=== PATIENT | female | born 1940 | race Caucasian/White ===

== ENCOUNTER 2017-03-19 09:58 | Outpatient (RCR) | payer MEDICARE, OTHER ==
[2015-03-13 09:13] VITALS: BMI 26.5
[~2017-03-19 09:58] MED LIST: ACID16CA PO; AMIN1TAB PO; APIX5TAB PO; ARMTHY90PT PO; ASP81 PO; ASPI-757 PO; ATEN-1 PO; ATEN-65 PO; CYAN500T38 PO; CYCL10TA29 PO; DENOSUMAB 60 MG/1 ML SYR SUBQ ONE; FOLI-68 PO; HRT PO; LACT1CAP12; LISI5TAB25 PO; LOR5/325 PO; OSTEOPRIME PO; POTA2.5T7 PO; SULF-198 PO; THYR30TA21 PO; TRAM-420 PO; VITA0.4T11 PO; VITA1CAP46 PO; [UNRECOGNIZED DRUG - CODE] PO; [UNRECOGNIZED DRUG - CODE] PO
[2017-03-19 10:02] VITALS: BP 140/80
== END 2017-04-04 11:11 | disposition home or self-care (01) ==
LOC: SPU 09:58
PROVIDERS: ATTEND Internal Medicine Hematology
DX: M81.0 Age-related osteoporosis without current pathological fracture (principal)
CPT/HCPCS: 96372; J0897

== ENCOUNTER 2017-05-15 13:37 | Emergency (ER) | payer MEDICARE, OTHER ==
[2015-03-13 09:13] VITALS: Wt 77.1 kg
--- NOTE | 2017-05-15 14:29 | ER Report ---
History and Physical Time Seen By MD: 14:29 Hx. of Stated Complaint: PATIENT STATES THAT SHE HAS HAD LEFT LOWER LEG PAIN SINCE FRI. NIGHT; TODAY IT HAS GOTTEN WORSE AND STATES THAT THE PAIN IS OFF AND ON HPI/ROS CHIEF COMPLAINT: Left lower extremity discomfort and swelling HISTORY OF PRESENT ILLNESS: 76-year-old female patient presents to emergency room with complaint of left lower extremity swelling and discomfort. Patient states been going on for the last couple days. Patient states she's not had any shortness of breath, chest pain. Patient states she does have a history of DVT in the past. She states she had a negative ultrasound and then a few days later developed shortness of breath and chest pain and was diagnosed with pulmonary embolism. Patient states that she has not taken any medication for this. She denies having any fevers or chills. She states that the pain seems to be located right around the left knee. Patient was seen and evaluated at [facility], it was found there that she had an elevated d-dimer. She was then referred to the emergency room. REVIEW OF SYSTEMS: Respiratory: No cough, no dyspnea. Cardiovascular: No chest pain, no palpitations. Gastrointestinal: No vomiting, no abdominal pain. Musculoskeletal: As noted above Allergies: Coded Allergies: mold (Verified Allergy, Intermediate, a, 05/15/17) airborne molds Home Meds Active Scripts Atenolol (ATENOLOL) 25 Mg Tablet, 2 TAB PO BID, #240 TAB Prov:ALEXANDRA HERNANDEZ MD 03/12/15 Reported Medications Aspirin (ASPIRIN) 325 Mg Tablet, 325 MG PO DAILY, TAB 12/12/16 Cyanocobalamin (Vitamin B-12) (VITAMIN B-12) 500 Mcg Tablet, 500 MCG PO DAILY 12/12/16 Folic Acid (FOLIC ACID) 1 Mg Tablet, 2 MG PO QDAY, TAB 05/31/16 Lactobacillus Combo No.11 (PROBIOTIC) 1 Each Cap.sprink 05/31/16 Vitamin B Complex/Folic Acid (VITAMIN B-100 COMPLEX TABLET) 0.4 Mg Tablet, 0.4 MG PO 05/31/16 Folic Acid (FOLIC ACID) 1 Mg Tablet, 2 MG PO QDAY, TAB 05/31/16 Lisinopril (LISINOPRIL) 5 Mg Tablet, 5 MG PO QDAY, TAB 05/31/16 Thyroid (ARMOUR THYROID) 90 Mg Tab, 2.5 GR PO DAILY, TAB 03/12/15 Past Medical/Surgical History Patient has a past medical history of DVT, hypertension, PE, arthritis, hypothyroidism, alcohol use. Patient has surgical history of hysterectomy, back surgery, breast biopsy. Reviewed Nurses Notes: Yes Hx Smoking: Yes Smoking Status: Former Smoker Exposure to Second Hand Smoke?: No Hx Substance Use Disorder: No Hx Alcohol Use: Yes Constitutional Vital Sign - Last 24 Hours 05/15/17 05/15/17 05/15/17 05/15/17 13:42 14:15 14:30 14:37 Temp 97.9 Pulse 70 68 Resp 19 B/P (MAP) 162/94 157/90 (112) 158/88 (111) Pulse Ox 94 95 O2 Delivery Room Air 05/15/17 05/15/17 05/15/17 05/15/17 15:00 15:07 15:30 15:30 Pulse 66 67 Resp 6 28 B/P (MAP) 168/81 (110) 163/85 (111) 163/85 (111) Pulse Ox 90 95 05/15/17 05/15/17 05/15/17 05/15/17 16:00 16:30 17:00 17:30 Pulse 68 65 66 Resp 20 12 12 17 B/P (MAP) 176/82 (113) 174/88 (116) 173/84 (113) 178/97 (124) Pulse Ox 93 92 05/15/17 17:52 B/P (MAP) 186/94 (124) Physical Exam General Appearance: The patient is alert, has no immediate need for airway protection and no current signs of toxicity. Respiratory: Chest is non tender, lungs are clear to auscultation. Cardiac: regular rate and rhythm Gastrointestinal: Abdomen is soft and non tender, no masses, bowel sounds normal. Musculoskeletal: Neck: Neck is supple and non tender. Extremities have full range of motion and are non tender. Patient does have some swelling to the left lower extremity, pulses are equal and strong. Has tenderness to the patella. Skin: No rashes or lesions. DIFFERENTIAL DIAGNOSIS: After history and physical exam differential diagnosis was considered for DVT, PE, arthritis, gout. Medical Decision Making Data Points Result Diagram: 05/15/17 1420 05/15/17 1420 Laboratory Hematology Test 05/15/17 14:20 Red Blood Count 4.93 M/uL (4.17-5.56) Mean Corpuscular Volume 91.9 fL (80.0-96.0) Mean Corpuscular Hemoglobin 31.0 pg (26.0-33.0) Mean Corpuscular Hemoglobin Concent 33.8 g/dL (32.0-36.0) Red Cell Distribution Width 13.9 % (11.5-14.5) Mean Platelet Volume 9.5 fL (7.2-11.1) Neutrophils (%) (Auto) 54.5 % (39.4-72.5) Lymphocytes (%) (Auto) 29.7 % (17.6-49.6) Monocytes (%) (Auto) 11.5 % (4.1-12.4) Eosinophils (%) (Auto) 3.6 % (0.4-6.7) Basophils (%) (Auto) 0.7 % (0.3-1.4) Nucleated RBC Relative Count (auto) 0.0 /100WBC Neutrophils # (Auto) 2.4 K/uL (2.0-7.4) Lymphocytes # (Auto) 1.3 K/uL (1.3-3.6) Monocytes # (Auto) 0.5 K/uL (0.3-1.0) Eosinophils # (Auto) 0.2 K/uL (0.0-0.5) Basophils # (Auto) 0.0 K/uL (0.0-0.1) Nucleated RBC Absolute Count (auto) 0.00 K/uL Sodium Level 138 mmol/L (137-145) Potassium Level 3.7 mmol/L (3.5-5.0) Chloride Level 101 mmol/L (98-107) Carbon Dioxide Level 26 mmol/L (22-31) Blood Urea Nitrogen 21 mg/dl (7-18) Creatinine 0.70 mg/dl (0.52-1.04) Glomerular Filtration Rate Calc > 60.0 Random Glucose 89 mg/dl (75-110) Calcium Level 9.2 mg/dl (8.4-10.2) Total Bilirubin 1.0 mg/dl (0.2-1.3) Aspartate Amino Transf (AST/SGOT) 25 U/L (0-35) Alanine Aminotransferase (ALT/SGPT) 34 U/L (0-56) Alkaline Phosphatase 75 U/L (0-126) Troponin I < 0.012 ng/ml Total Protein 7.3 gm/dl (6.3-8.2) Albumin 4.2 g/dl (3.5-5.0) Chemistry Test 05/15/17 14:20 White Blood Count 4.3 k/uL (4.5-11.0) Red Blood Count 4.93 M/uL (4.17-5.56) Hemoglobin 15.3 g/dL (12.0-16.0) Hematocrit 45.3 % (34.0-47.0) Mean Corpuscular Volume 91.9 fL (80.0-96.0) Mean Corpuscular Hemoglobin 31.0 pg (26.0-33.0) Mean Corpuscular Hemoglobin Concent 33.8 g/dL (32.0-36.0) Red Cell Distribution Width 13.9 % (11.5-14.5) Platelet Count 173 K/uL (150-450) Mean Platelet Volume 9.5 fL (7.2-11.1) Neutrophils (%) (Auto) 54.5 % (39.4-72.5) Lymphocytes (%) (Auto) 29.7 % (17.6-49.6) Monocytes (%) (Auto) 11.5 % (4.1-12.4) Eosinophils (%) (Auto) 3.6 % (0.4-6.7) Basophils (%) (Auto) 0.7 % (0.3-1.4) Nucleated RBC Relative Count (auto) 0.0 /100WBC Neutrophils # (Auto) 2.4 K/uL (2.0-7.4) Lymphocytes # (Auto) 1.3 K/uL (1.3-3.6) Monocytes # (Auto) 0.5 K/uL (0.3-1.0) Eosinophils # (Auto) 0.2 K/uL (0.0-0.5) Basophils # (Auto) 0.0 K/uL (0.0-0.1) Nucleated RBC Absolute Count (auto) 0.00 K/uL Glomerular Filtration Rate Calc > 60.0 Calcium Level 9.2 mg/dl (8.4-10.2) Total Bilirubin 1.0 mg/dl (0.2-1.3) Aspartate Amino Transf (AST/SGOT) 25 U/L (0-35) Alanine Aminotransferase (ALT/SGPT) 34 U/L (0-56) Alkaline Phosphatase 75 U/L (0-126) Troponin I < 0.012 ng/ml Total Protein 7.3 gm/dl (6.3-8.2) Albumin 4.2 g/dl (3.5-5.0) EKG/Imaging EKG Interpretation 12 lead EKG: Rhythm: normal sinus rhythm with a ventricular rate of 64 bpm [place]mita: normal QRS: normal ST segments: normal Imaging EXAMINATION: Left knee radiographs 4 views HISTORY: Left knee pain and tingling. COMPARISON: None. FINDINGS: AP, lateral, sunrise, and oblique views of the left knee are obtained. Bones: No acute fracture. Quadriceps insertion enthesophyte on the patella. Joint spaces: Negative. Hardware: None. Alignment: Normal. Soft tissues: Negative. Effusion: None. IMPRESSION: No acute osseous abnormality of the left knee. Report Dictated By: Paop Dowd MD at 05/15/2017 6:10 PM Report E-Signed By: Papo Dowd MD at 05/15/2017 6:[address] angiogram chest with contrast Indication: Elevated d-dimer. Chest pain. History of pulmonary embolism. Comparison: 08/17/2015. Technique: Axial CT images are obtained through the chest after administration of 75 mL Isovue 370 IV contrast. Reformatted coronal and sagittal images were reviewed as well as coronal MIP images. One of the following dose optimization techniques was utilized in the performance of this exam: automated exposure control; adjustment of the mA and/ or kV according to the patient's size; or use of an iterative reconstruction technique. Specific details can be referenced in the facility's radiology CT exam operational policy. FINDINGS: No evidence of filling defect within the pulmonary vasculature to suggest pulmonary embolus. Heart is normal size without pericardial effusion. Aorta shows no indication of aneurysm or dissection. The mediastinum and hilar regions show no enlarged lymph nodes or abnormal density. Lungs show no consolidation, pleural effusion, pneumothorax, discrete nodule or focal interstitial opacity. Airways are clear. Bony structures show no acute fracture or discrete lesions. Chest wall shows no enlarged axillary lymph nodes or masses. Small hiatal hernia. The upper abdomen is otherwise unremarkable. IMPRESSION: 1. No evidence of pulmonary embolus. 2. No acute cardiothoracic abnormality Report Dictated By: Sarabjit Schmid at 05/15/2017 4:39 PM Report E-Signed By: Sarabjit Schmid at 05/15/2017 4:48 PM EXAMINATION: Unilateral lower extremity deep vein duplex Doppler ultrasound HISTORY: Left leg swelling and pain. COMPARISON: None. FINDINGS: Grayscale compression, duplex and color Doppler interrogation of the left lower extremity deep veins from common femoral vein to proximal calf was performed. The greater saphenous vein in the ipsilateral proximal thigh was evaluated using similar technique. Left lower extremity: Common femoral vein: Negative. Femoral vein: Negative. Deep femoral vein: Negative. Popliteal vein: Negative. Visualized deep calf veins: Negative. Greater saphenous vein in the proximal thigh: Negative. Popliteal fossa: Negative. Waveforms: Normal respiratory phasicity. IMPRESSION: No evidence of deep venous thrombosis of the left lower extremity. Report Dictated By: Papo Dowd MD at 05/15/2017 4:18 PM Report E-Signed By: Papo Dowd MD at 05/15/2017 4:21 PM ED Course/Re-evaluation ED Course Patient was admitted to exam room, history and physical were obtained. Differential diagnoses were considered. On examination patient does have some swelling to the left lower extremity, it is mildly erythematous. A CBC, CMP, troponin, EKG, ultrasound of the left lower extremity, CT pelvis angiogram were done. Troponin was negative, EKG showed a normal sinus rhythm, CBC and CMP were unremarkable. Ultrasound was negative for clots. CT scan showed no pulmonary emboli. I discussed findings with the patient. With patient having pain to the left patella an x-ray of the left knee was done. The results were negative. I discussed the patient and her . We will go ahead and discharge patient home at this time. I would like him to follow-up with her primary care provider early next week. I like to be reevaluated that time and if needed an ultrasound repeated. I discussed this with the patient and her and they verbalized understanding and agreement with plan. Decision to Disposition Date: May 15, 2017 Decision to Disposition Time: 17:47 Depart Departure Latest Vital Signs Vital Signs Date Time Temp Pulse Resp B/P (MAP) Pulse Ox O2 Delivery O2 Flow Rate FiO2 05/15/17 17:52 186/94 (124) 05/15/17 17:30 66 17 92 05/15/17 13:42 97.9 Room Air Impression: Primary Impression: Knee pain Condition: Improved Disposition: HOME OR SELF-CARE Referrals: BALBIR WOODRUFF DO (PCP) Patient Instructions: Knee Pain (ED) Additional Instructions: Limit activity by pain. Ice the knee 2-3 times a day for 10-15 minutes. Get plenty of rest. Follow up with your primary care provider in the next week. Return to the ER if condition worsens. Take Tylenol or Ibuprofen as needed for pain. Problem Qualifiers Primary Impression: Knee pain Chronicity: acute Laterality: left Qualified Codes: M25.562 - Pain in left knee CHILO PALUMBO May 15, 2017 14:29
[2017-05-15 14:47] LABS: PLATELET COUNT, AUTOMATED 173 K/uL (150-450)
--- NOTE | 2017-05-15 15:11 | EKG ---
[place] [facility] [place] NAME[place] BRIAN MONTALVO : [id number] MR: [id number] V: [id number] EXAM DATE: ORDERING PHYSICIAN: CHILO PALUMBO TECHNOLOGIST: LETA Magaña Reason : HX OF PE Blood Pressure : / mmHG Vent. Rate : 064 BPM Atrial Rate : 064 BPM P-R Int : 170 ms QRS Dur : 090 ms QT Int : 424 ms P-R-T Axes : 054 016 026 degrees QTc Int : 437 ms Normal sinus rhythm Normal ECG No previous ECGs available Confirmed by ROMULO DENISE ([id number]) on 05/15/2017 5:44:43 PM Referred By: CHILO Confirmed By:ROMULO DENISE
[2017-05-15] MEDS ORDERED: NS 0.9% 150 ML BAG 150 ML ONE (15:33)
[2017-05-15] MEDS ORDERED: IOPAMIDOL 76% 75 ML INFUS BTL 75 ML ONE (15:33)
[2017-05-15] MEDS ORDERED: NS 0.9% 20 ML SDV 60 ML ONE (16:09)
--- NOTE | 2017-05-15 16:24 | RADIOLOGY IMAGING REPORT ---
FACILITY: [facility] PATIENT NAME: Melinda Oshea : 1940 MR: [id number] V: [id number] EXAM DATE: ORDERING PHYSICIAN: CHILO PALUMBO TECHNOLOGIST: Location: [facility] Patient: Melinda Oshea : 1940 Visit/Account:[id number] Date of Sevice: 05/15/2017 EXAMINATION: Unilateral lower extremity deep vein duplex Doppler ultrasound HISTORY: Left leg swelling and pain. COMPARISON: None. FINDINGS: Grayscale compression, duplex and color Doppler interrogation of the left lower extremity deep veins from common femoral vein to proximal calf was performed. The greater saphenous vein in the ipsilatera l proximal thigh was evaluated using similar technique. Left lower extremity: Common femoral vein: Negative. Femoral vein: Negative. Deep femoral vein: Negative. Popliteal vein: Negative. Visualized deep calf veins: Negative. Greater saphenous vein in the proximal thigh: Negative. Popliteal fossa: Negative. Waveforms: Normal respiratory phasicity. IMPRESSION: No evidence of deep venous thrombosis of the left lower extremity. Report Dictated By: Papo Dowd MD at 05/15/2017 4:18 PM Report E-Signed By: Papo Dowd MD at 05/15/2017 4:21 PM WSN:[id number]
--- NOTE | 2017-05-15 16:52 | RADIOLOGY IMAGING REPORT ---
FACILITY: [facility] [place] PATIENT NAME: Melinda Oshea : 1940 MR: [id number] V: [id number] EXAM DATE: ORDERING PHYSICIAN: CHILO PALUMBO TECHNOLOGIST: Location: [facility] [place] Patient: Melinda Oshea : 1940 Visit/Account:[id number] Date of Sevice: 05/15/2017 CT angiogram chest with contrast Indication: Elevated d-dimer. Chest pain. History of pulmonary embolism. Comparison: 08/17/2015. Technique: Axial CT images are obtained through the chest after administration of 75 mL Isovue 370 IV contrast. Reformatted coronal and sagittal images were reviewed as well as coronal MIP images. One of the following dose optimization techniques was utilized in the performance of this exam: auto mated exposure control; adjustment of the mA and/or kV according to the patient's size; or use of an iterative reconstruction technique. Specific details can be referenced in the facility's radiology C T exam operational policy. FINDINGS: No evidence of filling defect within the pulmonary vasculature to suggest pulmonary embolus. Heart is normal size without pericardial effusion. Aorta shows no indication of aneurysm or dissectio n. The mediastinum and hilar regions show no enlarged lymph nodes or abnormal density. Lungs show no consolidation, pleural effusion, pneumothorax, discrete nodule or focal interstitial op acity. Airways are clear. Bony structures show no acute fracture or discrete lesions. Chest wall shows no enlarged axillary lym ph nodes or masses. Small hiatal hernia. The upper abdomen is otherwise unremarkable. IMPRESSION: 1. No evidence of pulmonary embolus. 2. No acute cardiothoracic abnormality Report Dictated By: Sarabjit Schmid at 05/15/2017 4:39 PM Report E-Signed By: Sarabjit Schmid at 05/15/2017 4:48 PM WSN:[id number]
[2017-05-15 17:52] VITALS: BP 186/94
--- NOTE | 2017-05-15 18:16 | RADIOLOGY IMAGING REPORT ---
FACILITY: [facility] - [place] PATIENT NAME: Melinda Oshea : 1940 MR: [id number] V: [id number] EXAM DATE: ORDERING PHYSICIAN: CHILO PALUMBO TECHNOLOGIST: Location: [facility] [place] Patient: Melinda Oshea : 1940 Visit/Account:[id number] Date of Sevice: 05/15/2017 EXAMINATION: Left knee radiographs 4 views HISTORY: Left knee pain and tingling. COMPARISON: None. FINDINGS: AP, lateral, sunrise, and oblique views of the left knee are obtained. Bones: No acute fracture. Quadriceps insertion enthesophyte on the patella. Joint spaces: Negative. Hardware: None. Alignment: Normal. Soft tissues: Negative. Effusion: None. IMPRESSION: No acute osseous abnormality of the left knee. Report Dictated By: Papo Dowd MD at 05/15/2017 6:10 PM Report E-Signed By: Papo Dowd MD at 05/15/2017 6:13 PM WSN:[id number]
== END 2017-05-15 18:06 | disposition home or self-care (01) ==
LOC: ER 14:32
DX: M25.562 Pain in left knee (principal)
CPT/HCPCS: 71275; 73564; 84484; 85025; 93005; 93971; 99284; J7050; Q9967; 82040; 82247; 82310; 82374; 82435; 82565; 82947; 84075; 84132; 84155; 84295; 84450; 84460; 84520

== ENCOUNTER → 2017-05-15 | Outpatient (REF) | payer MEDICARE, OTHER ==
[2015-03-13 09:13] VITALS: BMI 26.5
[~2017-05-15] MED LIST changes: -DENOSUMAB 60 MG/1 ML SYR SUBQ ONE
== END ==
LOC: ZZSENDIN 12:14
PROVIDERS: ATTEND Physician Assistant
DX: M79.605 Pain in left leg (principal)
CPT/HCPCS: 85379

== ENCOUNTER → 2017-05-20 | Outpatient (CLI) | payer MEDICARE, OTHER ==
[2015-03-13 09:13] VITALS: BMI 26.5
--- NOTE | 2017-05-20 13:06 | RADIOLOGY IMAGING REPORT ---
FACILITY: [facility] - [place] PATIENT NAME: Melinda Oshea : 1940 MR: [id number] V: [id number] EXAM DATE: ORDERING PHYSICIAN: BALBIR WOODRUFF TECHNOLOGIST: Location: [facility] [place] Patient: Melinda Oshea : 1940 Visit/Account:[id number] Date of Sevice: 05/20/2017 Exam type: 7 views lumbosacral spine History: Low back pain, radiculopathy, prior surgery Comparison: 02/01/2016. Findings: Postoperative changes are noted from fusion of L1-L4 through the left pedicles with intervertebral mary dy disks. No hardware complication seen. Mild compression deformity of the superior endplate of L4 is once again noted. Patient is osteopenic. AP view demonstrates a mild scoliosis towards the left. Lateral syndesmophytes are noted. Flexion-extension views demonstrate 4 mm of fixed retrolisthesis of T12 with respect to L1 but no sig nificant motion. IMPRESSION: 1. Postoperative changes are noted from posterior lumbar interbody fusion L1-L4 with left pedicle sc rews without hardware complication. 2. 4 mm of fixed retrolisthesis of T12 with respect to L1. No significant motion on flexion-extensi on views. 3. Mild lumbar scoliosis with degenerative changes. Report Dictated By: Sarabjit Cardona MD at 05/20/2017 12:58 PM Report E-Signed By: Sarabjit Cardona MD at 05/20/2017 1:01 PM WSN:[email or web address]
== END ==
LOC: RAD 11:12
PROVIDERS: ATTEND Family Medicine
DX: M85.88 Other specified disorders of bone density and structure, other site (principal); M41.87 Other forms of scoliosis, lumbosacral region; Z96.89 Presence of other specified functional implants; Z96.7 Presence of other bone and tendon implants
CPT/HCPCS: 72114

== ENCOUNTER → 2017-06-02 | Outpatient (CLI) | payer MEDICARE, OTHER ==
[2015-03-13 09:13] VITALS: BMI 26.5
--- NOTE | 2017-06-02 11:22 | RADIOLOGY IMAGING REPORT ---
[place] [facility] [place] NAME: Melinda Oshea : 1940 MR: [id number] V: [id number] EXAM DATE: ORDERING PHYSICIAN: KIKO CHOE TECHNOLOGIST: Location: [facility] Patient: Melinda Oshea : 1940 Visit/Account:[id number] Date of Sevice: 06/02/2017 L SPINE W/O CONTRAST History: Low back pain for 2 weeks. Numbness and tingling down left leg. COMPARISON STUDIES: 02/03/2015 TECHNIQUE: Multi-planar, multi-sequence lumbar spine MRI was performed without intravenous contrast administration. FINDINGS: Paraspinal soft tissues negative. Interval posterior fusion from L1 through L4 with stable grade 1 anterolisthesis L3 on L4. Desiccation of the remaining intervertebral discs. Moderate loss of disc space height T12-L1 and L5-S1. Visualized thoracic cord and conus appear normal. Mild prog ression of diffuse disc bulge at T12-L1 seen on the sagittal views. L1-L2: Interval partial discectomy with improved patency of the central canal. Small residual tiny c entral disc extrusion without significant central stenosis. Moderate left foraminal stenosis not sig nificantly changed. L2-L3: Broad-based disc bulge and facet hypertrophy result in mild to moderate narrowing of the centr al canal. Moderate bilateral foraminal stenosis not significantly changed. L3-L4: Facet hypertrophic changes. Mild narrowing of the central canal. Moderate bilateral foramina l stenosis not significantly changed. L4-L5: Broad-based disc bulge and facet hypertrophy. Interval development of left-sided synovial cys t which narrows the lateral recess for the L5 nerve root. Progression of mild narrowing of the centr al canal. Moderate bilateral foraminal stenosis not significantly changed. L5-S1: Broad-based disc bulge and facet hypertrophy. Interval development of left lateral filling de fect measuring 1.2 cm probably a synovial cyst which narrows the lateral recess for the S1 nerve root IMPRESSION: 1. New synovial cyst laterally on the left at L4-5 which narrows the lateral recess for the L5 nerve root. 2. New 1.2 cm filling defect laterally on the left at L5-S1 probably a synovial cyst or less likely extruded disc fragment narrowing the lateral recess for the S1 nerve root. 3. Interval posterior fusion from L1 to L3 with improved patency of the central canal at L1-L2. 4. Progression of mild degenerative disc disease at T12-L1. Report Dictated By: Joaquin Estrada MD at 06/02/2017 10:51 AM Report E-Signed By: Joaquin Estrada MD at 06/02/2017 11:16 AM WSN:[id number]
== END ==
LOC: MRI 05-30 07:03
PROVIDERS: ATTEND Orthopaedic Surgery Orthopaedic Surgery of the Spine
DX: M71.38 Other bursal cyst, other site (principal); M19.90 Unspecified osteoarthritis, unspecified site
CPT/HCPCS: 72148

== ENCOUNTER → 2017-12-09 | Outpatient (CLI) | payer MEDICARE, OTHER ==
[2015-03-13 09:13] VITALS: BMI 26.5
[~2017-12-09] MED LIST changes: +DENOSUMAB 60 MG/1 ML SYR SUBQ ONE
[2017-12-09 14:04] VITALS: BP 122/78
== END ==
LOC: SPU 09:39
PROVIDERS: ATTEND Family Medicine
DX: M81.0 Age-related osteoporosis without current pathological fracture (principal)
CPT/HCPCS: 96372; J0897

== ENCOUNTER 2017-12-22 17:16 | Emergency (ER) | payer MEDICARE, OTHER ==
[2015-03-13 09:13] VITALS: Wt 73.9 kg
[~2017-12-22 17:16] MED LIST changes: -DENOSUMAB 60 MG/1 ML SYR SUBQ ONE
--- NOTE | 2017-12-22 17:31 | ER Report ---
History and Physical Time Seen By MD: 17:27 Hx. of Stated Complaint: PATIENT IS HAVING DIFFICULTY SPEAKING AND RELAYING HER THOUGHTS HPI/ROS CHIEF COMPLAINT: Difficulty speaking HISTORY OF PRESENT ILLNESS: This is a 77-year-old female who presents to the emergency Department by private vehicle with her for discopathy approximately 30 minutes to 60 minutes prior to arrival the patient states she was talking to her son, who is a physician, he is asking her about her blood pressure, patient had difficulties finding the words blood pressure she could describe everything else that she was doing had no difficulties finding other words. The son asked her again and had a difficult time again finding the appropriate words for blood pressure. The son told him to go to the emergency department immediately. The patient arrives alert and oriented, interacting well, no distress, ambulates back to the room. The patient recalls the event, no amnesia, denies headaches, visual disturbances, no chest pain or shortness of breath, no palpitations. The patient is able to tell me in detail what happened however she is still having difficulty finding the words blood pressure. She is alert to date, time, location. No recent fevers or chills. REVIEW OF SYSTEMS: Constitutional: No fever, no chills. Eyes: No discharge. ENT: No sore throat. Cardiovascular: No chest pain, no palpitations. Respiratory: No cough, no shortness of breath. Gastrointestinal: No abdominal pain, no vomiting. Genitourinary: No hematuria. Musculoskeletal: No back pain. Skin: No rashes. Neurological: As above. Allergies: Coded Allergies: mold (Verified Allergy, Intermediate, a, 05/15/17) airborne molds Home Meds Active Scripts Atenolol (ATENOLOL) 25 Mg Tablet, 2 TAB PO BID, #240 TAB Prov:ALEXANDRA HERNANDEZ MD 03/12/15 Reported Medications Apixaban (ELIQUIS) 2.5 Mg Tablet, 2.5 MG PO BID 12/22/17 Folic Acid (FOLIC ACID) 1 Mg Tablet, 2 MG PO QDAY, TAB 05/31/16 Lisinopril (LISINOPRIL) 5 Mg Tablet, 5 MG PO QDAY, TAB 05/31/16 Thyroid (ARMOUR THYROID) 90 Mg Tab, 2 GR PO DAILY, TAB 03/12/15 Discontinued Reported Medications Aspirin (ASPIRIN) 325 Mg Tablet, 325 MG PO DAILY, TAB 12/12/16 Cyanocobalamin (Vitamin B-12) (VITAMIN B-12) 500 Mcg Tablet, 500 MCG PO DAILY 12/12/16 Folic Acid (FOLIC ACID) 1 Mg Tablet, 2 MG PO QDAY, TAB 05/31/16 Lactobacillus Combo No.11 (PROBIOTIC) 1 Each Cap.sprink 05/31/16 Vitamin B Complex/Folic Acid (VITAMIN B-100 COMPLEX TABLET) 0.4 Mg Tablet, 0.4 MG PO 05/31/16 Past Medical/Surgical History The patient has a past medical and surgical history of hypothyroidism, cataracts, wears glasses, hypertension, DVT, PE, hysterectomy, arthritis, back surgery, history of smoking, breast biopsy. Reviewed Nurses Notes: Yes Hx Smoking: Yes Smoking Status: Former Smoker Exposure to Second Hand Smoke?: No Hx Substance Use Disorder: No Hx Alcohol Use: Yes Constitutional Vital Sign - Last 24 Hours 12/22/17 12/22/17 12/22/17 12/22/17 17:20 17:35 17:45 17:46 Temp 97.4 Pulse 75 76 Resp 20 13 B/P (MAP) 151/20 172/88 (116) 166/84 (111) Pulse Ox 92 12/22/17 12/22/17 12/22/17 12/22/17 18:00 18:01 18:15 18:16 Pulse 71 75 Resp 10 15 B/P (MAP) 161/85 (110) 169/96 (120) Pulse Ox 93 12/22/17 12/22/17 12/22/17 12/22/17 18:30 18:31 18:45 18:46 Pulse 65 68 Resp 17 10 B/P (MAP) 162/87 (112) 155/84 (107) 12/22/17 12/22/17 12/22/17 12/22/17 19:13 19:15 19:20 19:30 Pulse 68 Resp 15 B/P (MAP) 155/84 (107) 156/83 (107) 155/93 (113) Pulse Ox 95 12/22/17 12/22/17 12/22/17 12/22/17 19:35 19:45 19:50 20:00 Pulse 74 70 Resp 14 10 B/P (MAP) 163/92 (115) 162/89 (113) Pulse Ox 94 95 12/22/17 12/22/17 12/22/17 12/22/17 20:20 20:30 20:32 20:37 Pulse 68 68 Resp 17 19 B/P (MAP) 144/106 (119) 158/94 (115) Pulse Ox 97 95 Physical Exam General Appearance: The patient is alert, has no immediate need for airway protection and no signs of toxicity. Eyes: Pupils equal and round no pallor or injection. EOMs intact. No nystagmus. ENT, Mouth: Mucous membranes are moist. Respiratory: There are no retractions, lungs are clear to auscultation. Cardiovascular: Regular rate and rhythm, no murmurs, clicks or rubs. Gastrointestinal: Abdomen is soft and non tender, no masses, bowel sounds normal. Neurological: Alert and oriented 4. Moving all extremities. Following all commands. No focal neuro deficits. Note the NIH stroke scale below. Skin: Warm and dry, no rashes. Musculoskeletal: Neck is supple non tender. Extremities are nontender, nonswollen and have full range of motion. DIFFERENTIAL DIAGNOSIS: After history and physical exam differential diagnosis was considered for transient ischemic attack, CVA, myocardial infarction, seizure, hypoglycemia and tumor. NIH Stroke Scale: 0 Level of consciousness:0 Alert Answers both questions correctly Performs both tasks correctly Best Gaze:0 Normal Visual:0 No visual loss Facial Palsy:0 Normal, symmetrical movements Motor Left Arm:0 No drift for 10 seconds Motor Right Arm:0 No drift for 10 seconds Motor Left Le No drift for 5 seconds Motor Right Le No drift for 5 seconds Limb Ataxia:0 Absent Sensory: 0 Normal, no sensory loss Best Language: 0 Normal, no aphasia Dysarthria:0 Normal Extinction and Inattention:0 No abnormality Medical Decision Making Data Points Result Diagram: 12/22/17 1727 12/22/17 1727 Laboratory Hematology Test 12/22/17 17:27 Red Blood Count 4.93 M/uL (4.17-5.56) Mean Corpuscular Volume 90.3 fL (80.0-96.0) Mean Corpuscular Hemoglobin 30.6 pg (26.0-33.0) Mean Corpuscular Hemoglobin Concent 33.9 g/dL (32.0-36.0) Red Cell Distribution Width 16.1 % (11.5-14.5) Mean Platelet Volume 9.4 fL (7.2-11.1) Neutrophils (%) (Auto) 55.2 % (39.4-72.5) Lymphocytes (%) (Auto) 32.2 % (17.6-49.6) Monocytes (%) (Auto) 10.6 % (4.1-12.4) Eosinophils (%) (Auto) 1.0 % (0.4-6.7) Basophils (%) (Auto) 1.0 % (0.3-1.4) Nucleated RBC Relative Count (auto) 0.1 /100WBC Neutrophils # (Auto) 3.6 K/uL (2.0-7.4) Lymphocytes # (Auto) 2.1 K/uL (1.3-3.6) Monocytes # (Auto) 0.7 K/uL (0.3-1.0) Eosinophils # (Auto) 0.1 K/uL (0.0-0.5) Basophils # (Auto) 0.1 K/uL (0.0-0.1) Nucleated RBC Absolute Count (auto) 0.01 K/uL Prothrombin Time 13.0 seconds (12.0-14.4) Prothromb Time International Ratio 0.98 Activated Partial Thromboplast Time 29 seconds (23-35) Sodium Level 139 mmol/L (137-145) Potassium Level 3.5 mmol/L (3.5-5.0) Chloride Level 101 mmol/L (98-107) Carbon Dioxide Level 29 mmol/L (22-31) Blood Urea Nitrogen 21 mg/dl (7-18) Creatinine 0.90 mg/dl (0.52-1.04) Glomerular Filtration Rate Calc > 60.0 Random Glucose 100 mg/dl (75-110) Calcium Level 9.4 mg/dl (8.4-10.2) Total Bilirubin 1.5 mg/dl (0.2-1.3) Aspartate Amino Transf (AST/SGOT) 23 U/L (0-35) Alanine Aminotransferase (ALT/SGPT) 25 U/L (0-56) Alkaline Phosphatase 59 U/L (0-126) Troponin I < 0.012 ng/ml Total Protein 7.6 g/dl (6.3-8.2) Albumin 4.4 g/dl (3.5-5.0) Chemistry Test 12/22/17 17:27 White Blood Count 6.5 k/uL (4.5-11.0) Red Blood Count 4.93 M/uL (4.17-5.56) Hemoglobin 15.1 g/dL (12.0-16.0) Hematocrit 44.6 % (34.0-47.0) Mean Corpuscular Volume 90.3 fL (80.0-96.0) Mean Corpuscular Hemoglobin 30.6 pg (26.0-33.0) Mean Corpuscular Hemoglobin Concent 33.9 g/dL (32.0-36.0) Red Cell Distribution Width 16.1 % (11.5-14.5) Platelet Count 204 K/uL (150-450) Mean Platelet Volume 9.4 fL (7.2-11.1) Neutrophils (%) (Auto) 55.2 % (39.4-72.5) Lymphocytes (%) (Auto) 32.2 % (17.6-49.6) Monocytes (%) (Auto) 10.6 % (4.1-12.4) Eosinophils (%) (Auto) 1.0 % (0.4-6.7) Basophils (%) (Auto) 1.0 % (0.3-1.4) Nucleated RBC Relative Count (auto) 0.1 /100WBC Neutrophils # (Auto) 3.6 K/uL (2.0-7.4) Lymphocytes # (Auto) 2.1 K/uL (1.3-3.6) Monocytes # (Auto) 0.7 K/uL (0.3-1.0) Eosinophils # (Auto) 0.1 K/uL (0.0-0.5) Basophils # (Auto) 0.1 K/uL (0.0-0.1) Nucleated RBC Absolute Count (auto) 0.01 K/uL Prothrombin Time 13.0 seconds (12.0-14.4) Prothromb Time International Ratio 0.98 Activated Partial Thromboplast Time 29 seconds (23-35) Glomerular Filtration Rate Calc > 60.0 Calcium Level 9.4 mg/dl (8.4-10.2) Total Bilirubin 1.5 mg/dl (0.2-1.3) Aspartate Amino Transf (AST/SGOT) 23 U/L (0-35) Alanine Aminotransferase (ALT/SGPT) 25 U/L (0-56) Alkaline Phosphatase 59 U/L (0-126) Troponin I < 0.012 ng/ml Total Protein 7.6 g/dl (6.3-8.2) Albumin 4.4 g/dl (3.5-5.0) Coagulation Test 12/22/17 17:27 Prothrombin Time 13.0 seconds Prothromb Time International Ratio 0.98 Activated Partial Thromboplast Time 29 seconds EKG/Imaging EKG Interpretation 12 lead EKG: Time of EKG 1737. Rhythm: Normal sinus rhythm, ventricular rate 68 bpm. Point: normal QRS: normal ST segments: No ST depression or elevation identified. No significant changes from the 05/15/2017 EKG. Imaging Location: [facility] [place] Patient: Melinda Oshea : 1940 Visit/Account:[id number] Date of Sevice: 12/22/2017 HEAD W/O CONTRAST HISTORY: Mental status change, a facial COMPARISON STUDIES: none TECHNIQUE: Contiguous axial images were obtained from the skull base to the vertex. One of the following dose optimization techniques was utilized in the performance of this exam: Automated exposure control; adjustment of the mA and/or kV according to the patient's size; or use of an iterative reconstruction technique. Specific details can be referenced in the facility's radiology CT exam operational policy. FINDINGS: Hemorrhage: Negative Ventricles / sulci / fissures: Negative Masses / midline shift: Negative White matter: Periventricular white matter low density is likely on the basis of small vessel disease. Eddy-white differentiation: Old left external capsular lacunar infarct is noted. Extra-axial spaces: Negative Bones and skull base: Negative Visualized mastoid air cells / paranasal sinuses: Fluid in the sphenoid air cells suggests sinusitis. IMPRESSION: 1. No evidence for acute intracranial hemorrhage, mass or acute ischemia. 2. Old lacunar infarct in the left external capsule. 3. Periventricular white matter low densities likely on the basis of small vessel disease. 4. Sinusitis of the sphenoid air cells. Report Dictated By: Sarabjit Cardona MD at 12/22/2017 5:43 PM Report E-Signed By: Sarabjit Cardona MD at 12/22/2017 5:47 PM WSN:[id number] Exam type: CT ANGIOGRAM HEAD WITH CONTRAST HISTORY: Difficulty with speech TECHNIQUE: Overlapping thin sections were obtained a bolus of IV contrast from the aortic arch through the vertex. Reconstruction of the source data set includes mulitplanar 2D in the sagittal and coronal planes, and 3D coronal thin slab MIP series. One of the following dose optimization techniques was utilized in the performance of this exam: Automated exposure control; adjustment of the mA and/or kV according to the patient's size; or use of an iterative reconstruction technique. Specific details can be referenced in the facility's radiology CT exam operational policy. Stenosis of the internal carotid arteries are calculated using NASCET criteria. Contrast: 75 cc of Isovue-370 COMPARISON STUDIES: None FINDINGS: Angiographic findings: Stenosis will be measured by NASCET criteria. Aortic arch and great vessels: Negative Right CCA / ICA: Negative Left CCA / ICA: Negative Vertebro-basilar: The distal left vertebral artery is patent but diminutive in size. Right vertebral artery is patent to the basilar artery [place]: Origin of the right NOODLE MAKER is from the right internal carotid artery. Other vascular findings: The JOSE, ACOMM, and MCA arteries are unremarkable. Posterior cerebral arteries aside from the persistent right circulation are also unremarkable Dural venous sinuses: Negative Additional non-angiographic findings: Soft tissues of the neck demonstrated absent right thyroid gland. Lung apices are unremarkable. The osseous structures demonstrate degenerative changes in the spine. Air-fluid levels in the sphenoid air cells suggests sinusitis. IMPRESSION: 1. Unremarkable CTA of the neck and brain. 2. Sinusitis of the sphenoid sinuses. Report Dictated By: Sarabjit Cardona MD at 12/22/2017 7:56 PM Report E-Signed By: Sarabjit Cardona MD at 12/22/2017 7:57 PM WSN:[id number] Location: [facility] [place] Patient: Melinda Oshea : 1940 Visit/Account:[id number] Date of Sevice: 12/22/2017 VENOUS DOPP LOW LEFT EXTREMITY HISTORY: Left lower leg pain COMPARISON: 05/15/2017 FINDINGS: Grayscale, duplex and color Doppler interrogation of the left lower extremity deep veins from common femoral vein to proximal calf was completed. The greater saphenous vein in the left proximal thigh was evaluated using similar technique. Common femoral vein - Negative. Femoral vein - Negative. Deep femoral vein - Negative. Popliteal vein - Negative. Visualized deep calf veins - Negative. Popliteal fossa: Negative. Greater saphenous vein in the proximal thigh: Negative. IMPRESSION: 1. No evidence for left lower extremity DVT. Report Dictated By: Sarabjit Cardona MD at 12/22/2017 7:57 PM Report E-Signed By: Sarabjit Cardona MD at 12/22/2017 7:58 PM WSN:[id number] Location: [facility] [place] Patient: Melinda Oshea : 1940 Visit/Account:[id number] Date of Sevice: 12/22/2017 Exam type: CHEST SINGLE AP History: Stroke symptoms Comparison: None. Findings: Both lungs are well-expanded. Chronic interstitial changes are noted but there is no focal infiltrate, pleural effusion or pneumothorax. Heart is enlarged. Thoracic aorta is ectatic. The osseous structures demonstrate healed left posterior lateral rib fractures. Prior surgery in the upper lumbar spine is noted. IMPRESSION: 1. No acute cardiopulmonary disease. Report Dictated By: Sarabjit Cardona MD at 12/22/2017 7:27 PM Report E-Signed By: Sarabjit Cardona MD at 12/22/2017 7:28 PM WSN:[id number] ED Course/Re-evaluation Clinical Indication for ER IV: IV Access ED Course The patient was admitted to room. History and physical were obtained. Differen tial diagnoses were considered. An IV was started. A CBC, CMP, troponin obtained. Laboratory studies unremarkable. Negative troponin. EKG showing normal sinus rhythm. Single view chest x-ray negative for any acute cardiopulmonary process. CT of the brain was negative for any acute intracranial hemorrhage, does appear to have old lacunar infarct in the left external capsule. A CTA of the brain and carotids were negative for any acute abnormalities. I reviewed the laboratory studies as well as the CT results with the patient and her , with the recommendation of the neurologist as noted below and his assessment, I do agree that we can send the patient home with strict follow-up tomorrow with her primary care provider. The patient is on Ahlquist no need for further anticoagulation. The patient states she will follow-up 1st thing tomorrow morning with Dr. Woodruff and move forward with the recommendations as noted on her discharge paperwork such as echocardiogram with bubble study, MRI, hemoglobin A1c, and consideration of 3-4 week cardiac monitoring. The patient and her both agree with this plan of care, the patient is interacting well, no deficits, clear speech, no expressive aphasia at the time of discharge. A also told patient that if this were to happen again she must call an ambulance as opposed to having her drive her in, both she and her expressed understanding. Patient was discharged home. 12/22/2017 6:34:57 pm did speak with Dr. Dowd, neurologist at [facility], through the telemetry stroke program, he did evaluate the patient at the bedside with the to stroke monitor, he did evaluate the patient as I did. He felt the patient would be to go home tonight, he felt that this was a TIA and her ABCD sq score is a 3. She would need to follow up with her primary care provider tomorrow, the patient is agreeable with this plan of care. During our [facility] conversation, the patient did mention that she has had calf pain intermittently over the last week or 2 weeks, she does have a history of clots although she is on Ahlquist at this time. We felt that the risk for a clot was low however we will go ahead and ultrasounded her left leg and CTA of the carotids. 12/22/2017 8:24:36 pm the radiologist called, the patient had negative CTA of the carotids and brain, negative ultrasound of the left lower leg. Decision to Disposition Date: Dec 22, 2017 Decision to Disposition Time: 20:24 Depart Departure Latest Vital Signs Vital Signs Date Time Temp Pulse Resp B/P (MAP) Pulse Ox O2 Delivery O2 Flow Rate FiO2 12/22/17 20:37 68 19 95 12/22/17 20:32 158/94 (115) 12/22/17 17:20 97.4 Impression: Primary Impression: TIA (transient ischemic attack) Condition: Improved Disposition: HOME OR SELF-CARE Referrals: BALBIR WOODRUFF DO (PCP) 1 Day Patient Instructions: Transient Ischemic Attack (DC) Additional Instructions: Your blood work looks good today. The CT of the brain and carotids are both negative. The Ultrasound of the left leg is negative for DVT. You must follow up with your primary care provider tomorrow for follow up, please call first thing in the morning. It is the recommendation of Neurology and myself you must complete the TIA workup with an MRI, Echocardiogram with bubble study, HgbA1C, fasting lipid profile and possibly prolonged cardiac monitoring (3wks or greater). Be sure to take your regular medications. Drink plenty of water. Get plenty of rest. If this happens again, even if you live out of town, call 911 and have the ambulance come and pick you up. JEFRY RODRIGUEZ DEPUTY DIRECTOR OF FINANCE-BC Dec 22, 2017 17:31
[2017-12-22 17:41] LABS: PLATELET COUNT, AUTOMATED 204 K/uL (150-450)
[2017-12-22] MEDS ORDERED: IOPAMIDOL 76% 75 ML INFUS BTL 0 ML ONE (17:41)
[2017-12-22] MEDS ORDERED: NS(*) 0.9% 50 ML BAG 0 ML ONE (17:41)
--- NOTE | 2017-12-22 17:43 | EKG ---
FACILITY: [facility] PATIENT NAME: BRIAN MONTALVO : [id number] MR: [id number] V: [id number] EXAM DATE: ORDERING PHYSICIAN: JEFRY RODRIGUEZ TECHNOLOGIST: WAYNE Magaña Reason : NEURO Blood Pressure : / mmHG Vent. Rate : 068 BPM Atrial Rate : 068 BPM P-R Int : 162 ms QRS Dur : 088 ms QT Int : 402 ms P-R-T Axes : 069 008 024 degrees QTc Int : 427 ms Normal sinus rhythm Normal ECG When compared with ECG of 15-MAY-2017 14:39, No significant change was found Confirmed by ROMULO DENISE ([id number]) on 12/23/2017 7:38:35 AM Referred By: RUTHIE Confirmed By:ROMULO DENISE
[2017-12-22 17:49] LABS: INR 0.98
--- NOTE | 2017-12-22 17:51 | RADIOLOGY IMAGING REPORT ---
FACILITY: [facility] [place] PATIENT NAME: Melinda Oshea : 1940 MR: [id number] V: [id number] EXAM DATE: ORDERING PHYSICIAN: MADHU LARSEN TECHNOLOGIST: Location: [facility] Patient: Melinda Oshea : 1940 Visit/Account:[id number] Date of Sevice: 12/22/2017 HEAD W/O CONTRAST HISTORY: Mental status change, a facial COMPARISON STUDIES: none TECHNIQUE: Contiguous axial images were obtained from the skull base to the vertex. One of the following dose optimization techniques was utilized in the performance of this exam: Autom ated exposure control; adjustment of the mA and/or kV according to the patient's size; or use of an i terative reconstruction technique. Specific details can be referenced in the facility's radiology C T exam operational policy. FINDINGS: Hemorrhage: Negative Ventricles / sulci / fissures: Negative Masses / midline shift: Negative White matter: Periventricular white matter low density is likely on the basis of small vessel disease . Eddy-white differentiation: Old left external capsular lacunar infarct is noted. Extra-axial spaces: Negative Bones and skull base: Negative Visualized mastoid air cells / paranasal sinuses: Fluid in the sphenoid air cells suggests sinusitis. IMPRESSION: 1. No evidence for acute intracranial hemorrhage, mass or acute ischemia. 2. Old lacunar infarct in the left external capsule. 3. Periventricular white matter low densities likely on the basis of small vessel disease. 4. Sinusitis of the sphenoid air cells. Report Dictated By: Sarabjit Cardona MD at 12/22/2017 5:43 PM Report E-Signed By: Sarabjit Cardona MD at 12/22/2017 5:47 PM WSN:[id number]
[2017-12-22] MEDS ORDERED: APIX2.5T PO (18:34)
[2017-12-22] MEDS ORDERED: IOPAMIDOL 76% 75 ML INFUS BTL 75 ML ONE (18:50)
[2017-12-22] MEDS ORDERED: NS(*) 0.9% 50 ML BAG 50 ML ONE (18:50)
--- NOTE | 2017-12-22 19:33 | RADIOLOGY IMAGING REPORT ---
FACILITY: [facility] PATIENT NAME: Melinda Oshea : 1940 MR: [id number] V: [id number] EXAM DATE: ORDERING PHYSICIAN: JEFRY RODRIGUEZ TECHNOLOGIST: Location: [facility] Patient: Melinda Oshea : 1940 Visit/Account:[id number] Date of Sevice: 12/22/2017 Exam type: CHEST SINGLE AP History: Stroke symptoms Comparison: None. Findings: Both lungs are well-expanded. Chronic interstitial changes are noted but there is no focal infiltrate , pleural effusion or pneumothorax. Heart is enlarged. Thoracic aorta is ectatic. The osseous structures demonstrate healed left posterior lateral rib fractures. Prior surgery in the upper lumbar spine is noted. IMPRESSION: 1. No acute cardiopulmonary disease. Report Dictated By: Sarabjit Cardona MD at 12/22/2017 7:27 PM Report E-Signed By: Sarabjit Cardona MD at 12/22/2017 7:28 PM WSN:[id number]
--- NOTE | 2017-12-22 19:57 | RADIOLOGY IMAGING REPORT ---
FACILITY: [facility] [place] PATIENT NAME: Melinda Oshea : 1940 MR: [id number] V: [id number] EXAM DATE: ORDERING PHYSICIAN: JEFRY RODRIGUEZ TECHNOLOGIST: Location: [facility] [place] Patient: Melinda Oshea : 1940 Visit/Account:[id number] Date of Sevice: 12/22/2017 CTA NECK/CAROTIDS and brain HISTORY: Difficulty with speech TECHNIQUE: Overlapping thin sections were obtained a bolus of IV contrast from the aortic arch throug h the vertex. Reconstruction of the source data set includes mulitplanar 2D in the sagittal and coron al planes, and 3D coronal thin slab MIP series. One of the following dose optimization techniques was utilized in the performance of this exam: Autom ated exposure control; adjustment of the mA and/or kV according to the patient's size; or use of an i terative reconstruction technique. Specific details can be referenced in the facility's radiology C T exam operational policy. Stenosis of the internal carotid arteries are calculated using NASCET criteria. Contrast: 75 cc of Isovue-370 COMPARISON STUDIES: None FINDINGS: Angiographic findings: Stenosis will be measured by NASCET criteria. Aortic arch and great vessels: Negative Right CCA / ICA: Negative Left CCA / ICA: Negative Vertebro-basilar: The distal left vertebral artery is patent but diminutive in size. Right vertebra l artery is patent to the basilar artery [place]: Origin of the right CHART CLERK is from the right internal carotid artery. Other vascular findings: The JOSE, ACOMM, and MCA arteries are unremarkable. Posterior cerebral ramonita [place] aside from the persistent right circulation are also unremarkable Dural venous sinuses: Negative Additional non-angiographic findings: Soft tissues of the neck demonstrated absent right thyroid glan d. Lung apices are unremarkable. The osseous structures demonstrate degenerative changes in the spine . Air-fluid levels in the sphenoid air cells suggests sinusitis. IMPRESSION: 1. Unremarkable CTA of the neck and brain. 2. Sinusitis of the sphenoid sinuses. Report Dictated By: Sarabjit Cardona MD at 12/22/2017 7:42 PM Report E-Signed By: Sarabjit Cardona MD at 12/22/2017 7:54 PM WSN:[id number]
--- NOTE | 2017-12-22 20:01 | RADIOLOGY IMAGING REPORT ---
FACILITY: [facility] PATIENT NAME: Melinda Oshea : 1940 MR: [id number] V: [id number] EXAM DATE: ORDERING PHYSICIAN: JEFRY RODRIGUEZ TECHNOLOGIST: Location: [facility] Patient: Melinda Oshea : 1940 Visit/Account:[id number] Date of Sevice: 12/22/2017 Exam type: CT ANGIOGRAM HEAD WITH CONTRAST HISTORY: Difficulty with speech TECHNIQUE: Overlapping thin sections were obtained a bolus of IV contrast from the aortic arch throug h the vertex. Reconstruction of the source data set includes mulitplanar 2D in the sagittal and coron al planes, and 3D coronal thin slab MIP series. One of the following dose optimization techniques was utilized in the performance of this exam: Autom ated exposure control; adjustment of the mA and/or kV according to the patient's size; or use of an i terative reconstruction technique. Specific details can be referenced in the facility's radiology C T exam operational policy. Stenosis of the internal carotid arteries are calculated using NASCET criteria. Contrast: 75 cc of Isovue-370 COMPARISON STUDIES: None FINDINGS: Angiographic findings: Stenosis will be measured by NASCET criteria. Aortic arch and great vessels: Negative Right CCA / ICA: Negative Left CCA / ICA: Negative Vertebro-basilar: The distal left vertebral artery is patent but diminutive in size. Right vertebra l artery is patent to the basilar artery [place]: Origin of the right [employer] is from the right internal carotid artery. Other vascular findings: The JOSE, ACOMM, and MCA arteries are unremarkable. Posterior cerebral ramonita isaac aside from the persistent right circulation are also unremarkable Dural venous sinuses: Negative Additional non-angiographic findings: Soft tissues of the neck demonstrated absent right thyroid glan d. Lung apices are unremarkable. The osseous structures demonstrate degenerative changes in the spine . Air-fluid levels in the sphenoid air cells suggests sinusitis. IMPRESSION: 1. Unremarkable CTA of the neck and brain. 2. Sinusitis of the sphenoid sinuses. Report Dictated By: Sarabjit Cardona MD at 12/22/2017 7:56 PM Report E-Signed By: Sarabjit Cardona MD at 12/22/2017 7:57 PM WSN:[id number]
--- NOTE | 2017-12-22 20:03 | RADIOLOGY IMAGING REPORT ---
[place] [facility] [place]IENT NAME: Melinda Oshea : 1940 MR: [id number] V: [id number] EXAM DATE: ORDERING PHYSICIAN: JEFRY RODRIGUEZ TECHNOLOGIST: Location: [facility] [place] Patient: Melinda Oshea : 1940 Visit/Account:[id number] Date of Sevice: 12/22/2017 VENOUS DOPP LOW LEFT EXTREMITY HISTORY: Left lower leg pain COMPARISON: 05/15/2017 FINDINGS: Grayscale, duplex and color Doppler interrogation of the left lower extremity deep veins from common femoral vein to proximal calf was completed. The greater saphenous vein in the left proximal thigh wa s evaluated using similar technique. Common femoral vein - Negative. Femoral vein - Negative. Deep femoral vein - Negative. Popliteal vein - Negative. Visualized deep calf veins - Negative. Popliteal fossa: Negative. Greater saphenous vein in the proximal thigh: Negative. IMPRESSION: 1. No evidence for left lower extremity DVT. Report Dictated By: Sarabjit Cardona MD at 12/22/2017 7:57 PM Report E-Signed By: Sarabjit Cardona MD at 12/22/2017 7:58 PM WSN:[id number]
[2017-12-22 20:32] VITALS: BP 158/94
== END 2017-12-22 20:49 | disposition home or self-care (01) ==
LOC: ER 17:59
DX: G45.9 Transient cerebral ischemic attack, unspecified (principal); R41.82 Altered mental status, unspecified; E03.9 Hypothyroidism, unspecified; I10 Essential (primary) hypertension
CPT/HCPCS: 70450; 70496; 70498; 71045; 84484; 85025; 85610; 85730; 93005; 93971; 99284; J7050; Q9967; 36416; 82040; 82247; 82310; 82374; 82435; 82565; 82947; 82948; 84075; 84132; 84155; 84295; 84450; 84460; 84520

== ENCOUNTER → 2017-12-29 | Outpatient (CLI) | payer MEDICARE, OTHER ==
[2015-03-13 09:13] VITALS: BMI 26.5
[~2017-12-29] MED LIST changes: +APIX2.5T PO
== END ==
LOC: US 00:52
PROVIDERS: ATTEND Family Medicine
DX: I51.7 Cardiomegaly (principal)
CPT/HCPCS: 93306

== ENCOUNTER → 2018-01-12 | Outpatient (CLI) | payer MEDICARE, OTHER ==
[2015-03-13 09:13] VITALS: BMI 26.5
--- NOTE | 2018-01-12 14:18 | RADIOLOGY IMAGING REPORT ---
FACILITY: [facility] - [place] PATIENT NAME: Melinda Oshea : 1940 MR: [id number] V: [id number] EXAM DATE: ORDERING PHYSICIAN: BALBIR WOODRUFF TECHNOLOGIST: Location: [facility] [place] Patient: Melinda Oshea : 1940 Visit/Account:[id number] Date of Sevice: 01/12/2018 EXAMINATION: MRI Brain without intravenous contrast MRI Brain with intravenous contrast HISTORY: TIA. COMPARISON: Noncontrast head CT and CTA of the head and neck dated 12/22/2017. TECHNIQUE: Multi-planar, multi-sequence brain MRI was performed before and after IV gadolinium. CONTRAST: 15 mL of IV MultiHance FINDINGS: Brain volume: Mild generalized volume loss. Sagittal midline structures: Negative. Ventricles: Negative. Acute ischemic changes: None. Hemorrhage: None. Masses / edema: None. Enhancement: Negative. Eddy-white: Negative. White matter: Patchy T2/FLAIR hyperintensities in the deep white matter bilaterally. Vessels: Negative. Extra-axial: Negative. Calvarium / scalp: Negative. Skull base: Negative. Visualized sinuses / orbits: Mucosal thickening and fluid in the sphenoid sinuses. Mild to moderate mucosal thickening in the maxillary sinuses and ethmoid air cells. No significant change compared wit h 12/22/2017. Visualized upper neck: Negative. IMPRESSION: 1. No acute intracranial abnormality. 2. Moderate chronic white matter disease is nonspecific but most likely represents chronic microvascu lar ischemia. 3. Stable mucosal thickening and fluid in the paranasal sinuses. Report Dictated By: Diogo Carrasquillo MD at 01/12/2018 2:10 PM Report E-Signed By: Diogo Carrasquillo MD at 01/12/2018 2:13 PM WSN:[id number]
== END ==
LOC: MRI 12-30 00:17
PROVIDERS: ATTEND Family Medicine
DX: I67.82 Cerebral ischemia (principal); J32.8 Other chronic sinusitis
CPT/HCPCS: 70553